=== PATIENT | male | born 1960 | race Caucasian/White ===

== ENCOUNTER 2016-11-08 08:01 | Emergency (ER) | payer BC, OTHER ==
--- NOTE | 2016-11-08 08:14 | CPEKG ---
Heart Rate: 93 RR Interval: 645 P-R Interval: 160 QRSD Interval: 90 QT Interval: 372 QTC Interval: 463 P [place]: 68 QRS [place]: -3 T Wave [place]: 18 EKG Severity - NORMAL ECG - EKG Impression: SINUS RHYTHM Electronically Signed By: Suzy Rainey 08-Nov-2016 15:15:24
[2016-11-08] MEDS ORDERED: ASPIRIN 81 MG CHEWABLE TAB ONE (08:20)
[2016-11-08] MEDS ORDERED: MAALOX/LIDO/HYOSC GI COCKTAIL 55 ML BOTTLE PO ONE (08:29)
[2016-11-08] MEDS ORDERED: MAALOX/LIDO/HYOSC GI COCKTAIL 55 ML BOTTLE ONE (08:30)
--- NOTE | 2016-11-08 08:37 | EDPHY ---
H & P Stated Complaint: chest pain Time Seen by Provider: 11/08/16 08:22 HPI/ROS: CHIEF COMPLAINT: GI discomfort HISTORY OF PRESENT ILLNESS: The patient is a 56 y/o male complaining of burning pain in his esophagus onset Thursday night, 5 days ago. He arrived on Thursday from [place] to visit family. On Thursday night, he consumed a probiotic drink that caused immediate epigastric discomfort. Since then he's had burning pain in his esophagus, diarrhea, and what he describes as a "boiling stomach." He also complains of increased belching that actually causes some relief in his stomach discomfort. Eating aggravates his pain. This morning, he noticed the pain near his chest worsened when he bent over and he became concerned his symptoms were cardiac in nature. His pain is currently rate 6/10 in severity. He denies shortness of breath or chest pain at exertion. He denies significant changes to his diet while traveling. He notes he recently recovered from an upper respiratory infection. He does not have any known cardiac risk factors. REVIEW OF SYSTEMS: Constitutional: No fever, no chills Eyes: No visual changes ENT: No sore throat Respiratory: No cough, no shortness of breath Cardiac: see HPI Gastrointestinal: see HPI Genitourinary: No hematuria, no dysuria Musculoskeletal: No leg pain or swelling Skin: No rash Neurological: No headache, no numbness, no weakness Psychiatric: No depression Source: Patient - Personal History Current Tetanus/Diphtheria Vaccine: Unsure Current Tetanus Diphtheria and Acellular Pertussis (TDAP): Unsure - Medical/Surgical History PMH: Acid reflux No family history of heart disease at an age less than 55. Hx Asthma: No Hx Chronic Respiratory Disease: No Hx Diabetes: No Hx Cardiac Disease: No Hx Renal Disease: No Hx Cirrhosis: No Hx Alcoholism: No Hx HIV/AIDS: No Hx Splenectomy or Spleen Trauma: No Other PMH: no health history according to pt. investigated for PVCs but "clean bill of health" - Social History Smoking Status: Never smoked Additional Social History: Non-smoker. From [place], arrived Thursday to visit family and is watching grand kids currently - Physical Exam Exam: General Appearance: Alert, no distress Eyes: Pupils equal and round, no conjunctival pallor or injection ENT, Mouth: Mucous membranes moist Neck: Normal inspection Respiratory: Lungs are clear to auscultation Cardiovascular: Regular rate and rhythm Gastrointestinal: Abdomen is soft, mild epigastric tenderness Neurological: A&O, nonfocal, normal gait Skin: Warm and dry, no rash Extremities: Nontender, no pedal edema Psychiatric: Mood and affect normal Constitutional: Initial Vital Signs Temperature (C) 36.5 C 11/08/16 08:11 Heart Rate 92 11/08/16 08:11 Respiratory Rate 18 11/08/16 08:11 Blood Pressure 139/107 H 11/08/16 08:11 O2 Delivery Mode Room Air Allergies/Adverse Reactions: Penicillins Allergy (Verified 11/08/16 08:17) Home Medications: Medication Instructions Recorded NK [No Known Home Meds] 11/08/16 Medical Decision Making ED Course/Re-evaluation: IV established. Labs drawn including CBC, CHEM, lipase, LFTs, troponin. Patient placed on cardiac cath lab manager. PO GI cocktail and 40mg PO Protonix administered for symptoms. The 12 lead EKG was interpreted by myself. EKG shows sinus rhythm rate 93. See hard copy and/or "tracemaster" electronic copy for interpretation. 0900: Reassessed patient. His symptoms have almost completely resolved GI cocktail and he feels ready to go home. Once troponin results he will be discharged with instructions to use Mylanta and Protonix for symptoms and follow a bland diet while symptoms are present. I've recommended following up with his PCP upon his return home. Return precautions given. He is comfortable with this plan. 0940: Reevaluated patient and his symptoms have not returned. He will be discharged home in good condition. This patient presents with atypical chest pain. After careful consideration and evaluation, I find no evidence of acute coronary syndrome. The patient has no risk factors for coronary disease, normal EKG and normal studies. In addition, I feel that I can safely exclude pulmonary embolism, with normal vital signs, normal oxygen saturation and normal studies. In addition there is no evidence of pneumothorax, pneumonia, aortic dissection. Sx c/w GERD. Differential Diagnosis: Differential diagnosis includes though it is not limited to acute coronary syndrome, appendicitis, cholecystitis, diverticulitis, pyelonephritis, bowel perforation, small bowel obstruction. - Data Points Laboratory Results: Laboratory Results 11/08/16 08:25 11/08/16 08:25 11/08/16 11/08/16 08:25 08:25 WBC 7.08 10^3/uL 10^3/uL (3.80-9.50) RBC 5.62 10^6/uL 10^6/uL (4.40-6.38) Hgb 16.1 g/dL g/dL (13.7-17.5) Hct 47.6 % % (40.0-51.0) MCV 84.7 fL fL (81.5-99.8) MCH 28.6 pg pg (27.9-34.1) MCHC 33.8 g/dL g/dL (32.4-36.7) RDW 12.6 % % (11.5-15.2) Plt Count 254 10^3/uL 10^3/uL (150-400) MPV 10.1 fL fL (8.7-11.7) Neut % (Auto) 74.0 % % (39.3-74.2) Lymph % (Auto) 13.8 % L % (15.0-45.0) [place] % (Auto) 10.7 % % (4.5-13.0) Eos % (Auto) 1.0 % % (0.6-7.6) Baso % (Auto) 0.1 % L % (0.3-1.7) Nucleat RBC Rel Count 0.0 % % (0.0-0.2) Absolute Neuts (auto) 5.23 10^3/uL 10^3/uL (1.70-6.50) Absolute Lymphs (auto) 0.98 10^3/uL L 10^3/uL (1.00-3.00) Absolute Monos (auto) 0.76 10^3/uL 10^3/uL (0.30-0.80) Absolute Eos (auto) 0.07 10^3/uL 10^3/uL (0.03-0.40) Absolute Basos (auto) 0.01 10^3/uL L 10^3/uL (0.02-0.10) Absolute Nucleated RBC 0.00 10^3/uL 10^3/uL (0-0.01) Immature Gran % 0.4 % % (0.0-1.1) Immature Gran # 0.03 10^3/uL 10^3/uL (0.00-0.10) Sodium 144 mEq/L mEq/L (134-144) Potassium 3.9 mEq/L mEq/L (3.5-5.2) Chloride 106 mEq/L mEq/L (97-110) Carbon Dioxide 24 mEq/l mEq/l (22-31) Anion Gap 14 mEq/L mEq/L (8-16) BUN 13 mg/dL mg/dL (7-23) Creatinine 0.7 mg/dL mg/dL (0.7-1.3) Estimated GFR > 60 Glucose 118 mg/dL H mg/dL (70-100) Calcium 8.9 mg/dL mg/dL (8.5-10.4) Total Bilirubin 0.7 mg/dL mg/dL (0.1-1.4) Conjugated Bilirubin 0.3 mg/dL mg/dL (0.0-0.5) Unconjugated Bilirubin 0.4 mg/dL mg/dL (0.0-1.1) AST 28 IU/L IU/L (17-59) ALT 41 IU/L IU/L (21-72) Alkaline Phosphatase 86 IU/L IU/L (38-126) Troponin I < 0.012 ng/mL ng/mL (0-0.034) Total Protein 7.9 g/dL g/dL (6.3-8.2) Albumin 4.4 g/dL g/dL (3.5-5.0) Lipase 39.0 IU/L IU/L (23-300) Medications Given: Discontinued Medications Miscellaneous Medication (Gi Cocktail) 55 ml PO EDNOW ONE Stop: 11/08/16 08:30 Last Admin: 11/08/16 08:44 Dose: 55 ml Pantoprazole Sodium (Protonix) 40 mg PO EDNOW ONE Stop: 11/08/16 08:59 Last Admin: 11/08/16 09:10 Dose: 40 mg Departure - Departure Disposition: Home, Routine, Self-Care Clinical Impression: Acid reflux Qualifiers: Esophagitis presence: with esophagitis Qualified Code(s): K21.0 - Gastro- esophageal reflux disease with esophagitis Condition: Good Instructions: Gastroesophageal Reflux Disease (ED) Additional Instructions: 1. Take Mylanta 30 minutes before meals and at bedtime. 2. Use Protonix daily as prescribed. 3. Follow a bland diet while symptoms are present and advance as tolerated. 4. Follow up with your primary care provider upon your return home. 5. Return to the ED for chest pain, shortness of breath, or other worsening of condition. Referrals: Martin Olivares MD [Medical Doctor] - As per Instructions Report Scribed for: Suzy Rainey Report Scribed by: Laila Roberts Date of Report: 11/08/16 Time of Report: 08:37 Physician Review and Approval Statement: 11/08/16 08:37 Portions of this note were transcribed by a medical reimbursement manager. I personally performed a history, physical exam, medical decision making, and confirmed accuracy of information the transcribed note.
[2016-11-08 08:42] LABS: % IMMATURE GRANULYOCYTES 0.4 % (0.0-1.1); ABSOLUTE IMMATURE GRANULOCYTES 0.03 10^3/uL (0.00-0.10); ADD DIFF? NO; ADD MORPH? NO; ADD SCAN? NO; ATYPICAL LYMPHOCYTE FLAG 20 (0-99); FRAGMENT RBC FLAG 0 (0-99); HEMATOCRIT 47.6 % (40.0-51.0); HEMOGLOBIN 16.1 g/dL (13.7-17.5); LEFT SHIFT FLG 0 (0-99); LIPEMIA HEMOLYSIS FLAG 90 (0-99); MEAN CELL HEMOGLOBIN 28.6 pg (27.9-34.1); MEAN CELL HEMOGLOBIN CONCENTR. 33.8 g/dL (32.4-36.7); MEAN CELL VOLUME 84.7 fL (81.5-99.8); MEAN PLATELET VOLUME 10.1 fL (8.7-11.7); PLATELET CLUMPS FLAG 0 (0-99); PLATELET COUNT 254 10^3/uL (150-400); RED BLOOD CELL COUNT 5.62 10^6/uL (4.40-6.38); RED CELL DISTRIBUTION WIDTH 12.6 % (11.5-15.2)
[2016-11-08 08:51] LABS: ALANINE AMINOTRANSFERASE 41 IU/L (21-72); ALBUMIN 4.4 g/dL (3.5-5.0); ALKALINE PHOSPHATASE 86 IU/L (38-126); ANION GAP 14 mEq/L (8-16); ASPARTATE AMINOTRANSFERASE 28 IU/L (17-59); BILIRUBIN,TOTAL 0.7 mg/dL (0.1-1.4); BILIRUBIN-CONJUGATED 0.3 mg/dL (0.0-0.5); BILIRUBIN-UNCONJUGATED 0.4 mg/dL (0.0-1.1); CALCIUM 8.9 mg/dL (8.5-10.4); CARBON DIOXIDE 24 mEq/l (22-31); CHLORIDE 106 mEq/L (97-110); CREATININE 0.7 mg/dL (0.7-1.3); GLOMERULAR FILTRATION RATE > 60; GLUCOSE 118 mg/dL (70-100); POTASSIUM 3.9 mEq/L (3.5-5.2); SODIUM 144 mEq/L (134-144); TOTAL PROTEIN 7.9 g/dL (6.3-8.2)
[2016-11-08] MEDS ORDERED: PANTOPRAZOLE SODIUM 40 MG TAB PO ONE (08:58)
[2016-11-08 09:39] LABS: TROPONIN I < 0.012 ng/mL (0-0.034)
[2016-11-08 10:01] VITALS: BP 148/96; PULSE 80; RESP 16; TEMP 98.1; O2SAT 97
== END 2016-11-08 09:59 | disposition home or self-care (01) ==
DX: K21.0 Gastro-esophageal reflux disease with esophagitis (principal)